=== PATIENT | male | born 1950 | race Caucasian/White ===

== ENCOUNTER 2017-11-18 14:56 | Inpatient (IN) | payer BC, OTHER ==
[~2017-11-18] VITALS: Ht 167.6 cm; Wt 77.2 kg
[~2017-11-18 14:56] MED LIST: ALLOPURINOL100 MG PO; AMIODARONE HCL200 MG PO; BAYER PM CAPLE1 EACH PO; COL0.6 PO; CORE25 PO; FELDENE20 MG PO; FLO4 PO; HALCION0.25 MG PO; LASIX40 MG PO; LISINOPRIL10 MG PO; LORAZEPAM0.5 MG PO; LYRICA100 M1 PO; METFORMIN HCL500 MG PO; NITROGLYCERIN0.4 MG SL; NOR10T PO; PLAVIX75 M1 PO; SOMA350 MG PO; XARELTO20 M1 PO; ZOCOR40 MG PO
[2017-11-18 15:15] VITALS: Ht 167.6 cm; Wt 77.2 kg
[2017-11-18 16:28] LABS: BASOPHIL % 0.5 % (0-2); PLATELET COUNT 177 x10^3mcL (130-400); RED CELL DISTRIBUTION WIDTH 13.2 % (11.5-14.5)
[2017-11-18 16:49] LABS: BILIRUBIN TOTAL 0.62 mg/dL (0.20-1.00); CARBON DIOXIDE 30.3 mmol/L (21-32); CHLORIDE SERUM 91 mmol/L (98-107); POTASSIUM SERUM 3.8 mmol/L (3.5-5.1)
[2017-11-18 16:52] LABS: SODIUM SERUM 124 mmol/L (136-145)
[2017-11-18 17:10] LABS: ALKALINE PHOSPHATASE 91 U/L (46-116); ALT/SGPT 11 U/L (16-63); AST/SGOT 15 U/L (15-37); CREATININE SERUM 0.8 mg/dL (0.7-1.3); GFR1 > 60 mL/min; GLUCOSE SERUM 103 mg/dL (74-106); TOTAL PROTEIN, SERUM 6.4 g/dL (6.4-8.2)
[2017-11-18 17:13] LABS: ALBUMIN 3.3 g/dL (3.4-5.0); CK-MB 0.9 ng/mL (0-3.6)
[2017-11-18 18:22] LABS: MAGNESIUM 1.1 mg/dL (1.8-2.4)
[2017-11-18 18:24] LABS: CHOLESTEROL/HDL RATIO 2.2
[2017-11-18 18:26] VITALS: BP 144/72
[2017-11-18 21:22] VITALS: BP 157/81
[2017-11-19 05:36] VITALS: BP 149/76
[2017-11-19 05:50] LABS: BASOPHIL % 0.5 % (0-2); PLATELET COUNT 179 x10^3mcL (130-400); RED CELL DISTRIBUTION WIDTH 13.3 % (11.5-14.5)
[2017-11-19 05:52] LABS: CALCIUM 9.3 mg/dL (8.5-10.1); CARBON DIOXIDE 29.6 mmol/L (21-32); CHLORIDE SERUM 96 mmol/L (98-107); CREATININE SERUM 0.9 mg/dL (0.7-1.3); GFR1 > 60 mL/min; GLUCOSE SERUM 105 mg/dL (74-106); POTASSIUM SERUM 3.6 mmol/L (3.5-5.1); SODIUM SERUM 132 mmol/L (136-145)
[2017-11-19 09:34] VITALS: BP 156/90
[2017-11-19 13:59] VITALS: BP 147/76
[2017-11-19 17:18] VITALS: BP 154/75
[2017-11-19 21:11] VITALS: BP 146/88
[2017-11-20 06:08] VITALS: BP 156/89
[2017-11-20 09:00] VITALS: BP 155/79
[2017-11-20 12:30] VITALS: BP 146/73
[2017-11-20 17:34] VITALS: BP 138/74
[2017-11-20 21:25] VITALS: BP 152/99
[2017-11-21 05:44] VITALS: BP 144/55
[2017-11-21 06:52] LABS: BASOPHIL % 0.8 % (0-2); PLATELET COUNT 218 x10^3mcL (130-400); RED CELL DISTRIBUTION WIDTH 13.1 % (11.5-14.5)
[2017-11-21 07:11] LABS: CALCIUM 9.1 mg/dL (8.5-10.1); CHLORIDE SERUM 99 mmol/L (98-107); CREATININE SERUM 0.9 mg/dL (0.7-1.3); GFR1 > 60 mL/min; GLUCOSE SERUM 110 mg/dL (74-106); SODIUM SERUM 135 mmol/L (136-145)
[2017-11-21 09:45] VITALS: BP 163/86
[2017-11-21 13:25] VITALS: BP 148/79
[2017-11-21 14:14] VITALS: BP 92/70
[2017-11-21 18:40] VITALS: BP 157/79
[2017-11-21 20:56] VITALS: BP 177/88
[2017-11-22 05:44] VITALS: BP 169/88
[2017-11-22 06:52] LABS: BASOPHIL % 0.6 % (0-2); PLATELET COUNT 256 x10^3mcL (130-400); RED CELL DISTRIBUTION WIDTH 12.6 % (11.5-14.5)
[2017-11-22 07:03] LABS: CALCIUM 9.3 mg/dL (8.5-10.1); CARBON DIOXIDE 24.7 mmol/L (21-32); CHLORIDE SERUM 100 mmol/L (98-107); CREATININE SERUM 0.8 mg/dL (0.7-1.3); GFR1 > 60 mL/min; GLUCOSE SERUM 119 mg/dL (74-106); POTASSIUM SERUM 3.2 mmol/L (3.5-5.1); SODIUM SERUM 134 mmol/L (136-145)
[2017-11-22 09:39] VITALS: BP 137/71
[2017-11-22 13:29] VITALS: BP 147/79
[2017-11-22 17:07] VITALS: BP 144/77
[2017-11-22 20:47] VITALS: BP 154/83
[2017-11-23 05:02] VITALS: BP 113/59
[2017-11-23 06:41] LABS: BASOPHIL % 0.6 % (0-2); PLATELET COUNT 237 x10^3mcL (130-400); RED CELL DISTRIBUTION WIDTH 13.2 % (11.5-14.5)
[2017-11-23 06:45] LABS: CARBON DIOXIDE 27.3 mmol/L (21-32); CHLORIDE SERUM 98 mmol/L (98-107); CREATININE SERUM 0.9 mg/dL (0.7-1.3); GFR1 > 60 mL/min; GLUCOSE SERUM 110 mg/dL (74-106); MAGNESIUM 1.6 mg/dL (1.8-2.4); POTASSIUM SERUM 3.1 mmol/L (3.5-5.1); SODIUM SERUM 132 mmol/L (136-145)
[2017-11-23 09:18] VITALS: BP 98/53
[2017-11-23 12:57] VITALS: BP 98/60
[2017-11-23 13:19] VITALS: BP 98/53
[2017-11-23 18:38] VITALS: BP 116/64
== END 2017-11-23 19:42 | disposition home or self-care (01) | DRG 571 ==
LOC: ED 14:56 → DU 17:24
PROVIDERS: Emergency Medicine; Family Medicine; Internal Medicine; Podiatrist Foot & Ankle Surgery
PROC: 0JBQ0ZZ Excision of Right Foot Subcutaneous Tissue and Fascia, Open Approach (ICD-10-PCS; principal; 2017-11-22 07:30)
DX: L03.115 Cellulitis of right lower limb (principal); E87.1 Hypo-osmolality and hyponatremia; E44.0 Moderate protein-calorie malnutrition; L02.611 Cutaneous abscess of right foot; E11.40 Type 2 diabetes mellitus with diabetic neuropathy, unspecified; B95.62 Methicillin resistant Staphylococcus aureus infection as the cause of diseases classified elsewhere; Z16.23 Resistance to quinolones and fluoroquinolones; Z16.39 Resistance to other specified antimicrobial drug; M1A.9XX0 Chronic gout, unspecified, without tophus (tophi); N40.0 Benign prostatic hyperplasia without lower urinary tract symptoms; I50.9 Heart failure, unspecified; I25.10 Atherosclerotic heart disease of native coronary artery without angina pectoris; E78.5 Hyperlipidemia, unspecified; Z68.27 Body mass index [BMI] 27.0-27.9, adult; Z88.6 Allergy status to analgesic agent; I11.0 Hypertensive heart disease with heart failure; E78.00 Pure hypercholesterolemia, unspecified; M54.9 Dorsalgia, unspecified; G89.29 Other chronic pain; I25.2 Old myocardial infarction; Z95.1 Presence of aortocoronary bypass graft; D63.8 Anemia in other chronic diseases classified elsewhere
CPT/HCPCS: 82962; 94150; 97116-GP; 97164; 97530-GP; 97535-GP; J0690; J0696; J1170; J2270; J2543; J3010; J3370; J3475; J3480; J7030; Q0092